=== PATIENT | female | born 1990 | race American Indian/Alaskan Native ===

== ENCOUNTER 2020-12-28 18:54 | Emergency (ER) | payer SELFPAY ==
[2020-12-28 19:25] VITALS: BP 134/77
[2020-12-28] MEDS ORDERED: SODIUM CHLORIDE 0.9% 1000 ML 1,000 ML IV ONE (19:49)
--- NOTE | 2020-12-28 19:53 | Emergency Department Report ---
ED General Adult HPI - General Chief complaint: Urogenital-Female Stated complaint: BLOOD IN URINE/NO APPETITE Time Seen by Provider: 12/28/20 19:29 Source: patient Mode of arrival: Ambulatory Limitations: No Limitations - History of Present Illness Initial comments: 30-year-old female patient with history of prediabetes presents to the emergency department with complaints of painless hematuria, generalized weakness, increased thirst, and right lower back pain. Painless hematuria began today with 2 episodes of blood in her urine. Remainder of symptoms began approximately 1 week ago. Patient states she has been drinking a lot of soda lately and "it seems like she is always thirsty." Patient is not currently on any medication for glucose control. States her glucose was checked last month and confirmed to be within prediabetic range. No history of genitourinary problems. Denies fever, chills, nausea, vomiting, abdominal pain, dysuria, vag inal discharge. Denies all other complaints at this time. - Related Data Allergies Allergy/AdvReac Type Severity Reaction Status Date / Time No Known Allergies Allergy Verified 12/28/20 19:17 ED Review of Systems ROS: Stated complaint: BLOOD IN URINE/NO APPETITE Other details as noted in HPI Other: GENERAL: Positive for generalized weakness and increased thirst. ENT: Negative for ear pain, difficulty hearing, sore throat, nasal congestion, epistaxis. CARDIOVASCULAR: Negative for chest pain, palpitations, lower extremity swelling. PULMONARY: Negative for cough, dyspnea, wheezing, orthopnea, cyanosis. GASTROINTESTINAL: Negative for abdominal pain, nausea, vomiting, diarrhea, constipation. GENITOURINARY: Positive for hematuria. MUSCULOSKELETAL: Negative for joint pain, joint swelling, myalgias, back pain, neck pain. NEUROLOGICAL: Negative for headache, seizure, syncope, paresthesias, weakness. INTEGUMENTARY: Negative for erythema, rash, diaphoresis, laceration, ecchymosis. HEMATOLOGICAL: Negative for hemoptysis, hematemesis, hematochezia, hematuria. PSYCHIATRIC: Negative for hallucinations, suicidal ideation, homicidal ideation, anxiety, depression. ED Past Medical Hx - Past Medical History Previous Medical History?: Yes Additional medical history: HPV, - Surgical History Past Surgical History?: No - Social History Smoking Status: Never Smoker Substance Use Type: None ED Physical Exam - General Limitations: No Limitations - Other Other exam information: General: Awake and alert. No acute distress. Head: Atraumatic, normocephalic. Eyes: EOMI. Pupils are equal and round. Normal sclera and conjunctiva. ENT: Oral mucosa is dry. Normal pharyngeal exam. Neck: Supple. No lymphadenopathy. Pulmonary: No respiratory distress. Clear to auscultation bilaterally. Cardiac: Tachycardic. Pulses are palpable and equal bilaterally. No lower extremity cyanosis or edema. Skin: Warm and dry. No rashes. Abdomen: Soft, non-tender, non-protuberant. No guarding, rigidity, or rebound. Bowel sounds are normal. No organomegaly or masses noted. Back: Normal alignment. Right CVA tenderness. Extremities: Symmetrical. Full range of motion intact. Neurological: Alert and oriented, appropriately interactive, no focal deficits. Psych: Cooperative. Appropriate mood and affect. Speech is evenly metered. Thoughts are logically construed. ED Course Vital Signs 12/28/20 12/28/20 19:15 19:25 Temperature 99.2 F Pulse Rate 114 H Blood Pressure 134/77 O2 Sat by Pulse 97 Oximetry ED Medical Decision Making - Lab Data Result diagrams: 12/28/20 19:57 12/28/20 19:57 - Radiology Data [facility] [address] [place] [address] Cat Scan Report Signed Patient: PATO BEDOYA MR#: [id number] : 1990 Acct:[id number] Age/Sex: 30 / F ADM Date: 12/28/20 Loc: ED Attending Dr: Ordering Physician: ISAIAS GARZA Date of Service: 12/28/20 Procedure(s): CT abdomen pelvis wo con Accession Number(s): [id number] cc: ISAIAS GARZA CT abdomen pelvis wo con INDICATION / CLINICAL INFORMATION: right CVA tenderness + hematuria. TECHNIQUE: Axial CT imaging of abdomen and pelvis was obtained without contrast. Coronal and sagittal reformatted imaging obtained and reviewed. All CT scans at this location are p erformed using CT dose reduction for ALARA by means of automated exposure control. COMPARISON: None available. FINDINGS: CT abdomen without contrast demonstrates a nonspecific mass within the tip of the liver. The mass is round and measures approximately 2 cm. The remainder of the liver is unremarkable for noncontrast exam. Spleen, pancreas, and kidneys are unremarkable. Gallbladder is present. No intrarenal calculi or hydronephrosis is present in either kidney. CT pelvis without contrast demonstrates normal appearance the appendix in the right lower quadrant. The uterus and ovaries appear grossly unremarkable. GI tract is within normal limits. Visualized lung bases demonstrate multifocal bilateral groundglass opacities highly suggestive for Covid pneumonia. This will need to be correlated with Covid status. No acute osseous abnormality noted. IMPRESSION: 1. Multifocal groundglass opacities are seen in both visualized lung bases, most likely related to Covid pneumonia. Please correlate with Covid status. 2. Nonspecific incidental finding of 2 cm mass in the inferior tip of the liver. On a noncontrast exam, this mass is nonspecific. Further evaluation, in the future, with either hepatic ultrasound or contrasted CT can be performed for further evaluation. 3. Both kidneys appear unremarkable. A normal appearance of a kidney on a noncontrast CT does not exclude the possibility of pyelonephritis, if that is a possibility clinically. Signer Name: Delphine Gomez MD Signed: 12/28/2020 9:36 PM Workstation Name: [id number] Transcribed By: Dictated By: Delphine Gomez MD Electronically Authenticated By: Delphine Gomez MD Signed Date/Time: 12/28/202135 DD/ 30 TD/TT: - Medical Decision Making Differential diagnosis including but not limited to: pyelonephritis, nephrolithiasis, urinary tract infection, , new onset diabetes, DKA/HHS, dehydration, electrolyte abnormality, hypoglycemia, bladder cancer On reevaluation, patient is stable and symptoms have improved. Labs and urinalysis suggestive of mild dehydration. Serum glucose and pH within normal limits. test is negative. No clinical evidence to suggest urinary tract infection. CT of the abdomen/pelvis shows unremarkable kidneys and bladder. Incidentally, patient was found to have pulmonary findings at both lung bases suggestive of COVID-19 pneumonia as well as a nonspecific hepatic mass. Patient denies COVID-19 symptoms. Advised to adhere to CDC guidelines r egarding isolation precautions until confirmatory testing is completed on an outpatient basis. Patient has been provided with a copy of her imaging results to take with her to her primary care provider for further evaluation as clinically indicated. Patient expressed understanding and is agreeable to plan of care. Strict return precautions provided. Repeat exam is unremarkable and benign. History, exam, diagnostic testing, and current condition do not suggest worrisome pathology to warrant further testing, continued ED treatment, admission, or surgical evaluation at this point. Given the low probability of a significant medical illness, it would be more likely to result in harm than benefit to perform further testing at this stage. Discussed findings, presumptive diagnosis, need for follow-up and specific signs/symptoms that should prompt immediate return to the emergency department. Instructions were explained in detail to the patient in addition to giving written discharge information. Patient expressed understanding and was given the opportunity to ask questions, all of which were satisfactorily answered prior to discharge home. Of note, patient was tachycardic on arrival, presumably secondary to dehydration. Nursing staff was instructed multiple times via written and verbal communication (see orders) to recheck the patient's heart rate prior to discharge home. Discharge paperwork was not to be printed until repeat heart was obtained and documented. However, it appears the patient was still discharged home after IV fluids, and repeat vitals were not properly documented. She was ambulatory without assistance and reporting symptomatic relief at the time of discharge. Critical care attestation.: If time is entered above; I have spent that time in minutes in the direct care of this critically ill patient, excluding procedure time. ED Disposition Clinical Impression: Abnormal finding on CT scan Hematuria Qualifiers: Hematuria type: unspecified type Qualified Code(s): R31.9 - Hematuria, unspecified Disposition: 01 HOME / SELF CARE / HOMELESS Is pt being admited?: No Does the pt Need Aspirin: No Condition: Stable Instructions: Incidental Abnormal Radiological Finding, Hematuria, Adult Additional Instructions: Rest. Drink plenty of fluids. Please adhere to CDC guidelines regarding self-isolation precautions until confirmatory COVID-19 testing can be obtained. Follow-up with your primary care provider this week. Call Thursday to schedule an appointment. Bring a copy of today's CT results with you to your follow-up appointment. Return to the emergency department immediately for new or worsening symptoms. Specifically, return to the emergency department immediately for fever, abdominal pain, pelvic pain, increased bleeding, inability to use the bathroom, shortness of breath, chest pain, or any other concerns. Referrals: KATIE VALLADARES MD [Staff Physician] - 3-5 Days [facility] [Provider Group] - 3-5 Days Forms: Work/School Release Form(ED) Time of Disposition: 00:46
[2020-12-28 20:27] LABS: Basophils # (Auto) 0.1 K/mm3 (0.0-0.1); Eosinophils % (Auto) 0.3 % (0.0-4.3); Hematocrit 37.9 % (30.3-42.9); Hemoglobin 12.7 gm/dl (10.1-14.3); Lymphocytes # (Auto) 2.1 K/mm3 (1.2-5.4); Lymphocytes % (Auto) 31.8 % (13.4-35.0); Mean Corpuscular HGB Conc 33 % (30-34); Mean Corpuscular Volume 81 fl (79-97); Monocytes # (Auto) 0.8 K/mm3 (0.0-0.8); Monocytes % (Auto) 12.3 % (0.0-7.3); Platelet Count 231 K/mm3 (140-440); Red Cell Distribution Width 14.5 % (13.2-15.2)
[2020-12-28 20:43] LABS: Alanine Aminotransferase 32 units/L (7-56); Albumin 3.8 g/dL (3.9-5); BUN/Creatinine Ratio 11; Blood Urea Nitrogen 10 mg/dL (7-17); Calcium 9.3 mg/dL (8.4-10.2); Hemolysis Index 19
--- NOTE | 2020-12-28 21:40 | Cat Scan Report ---
CT abdomen pelvis wo con INDICATION / CLINICAL INFORMATION: right CVA tenderness + hematuria. TECHNIQUE: Axial CT imaging of abdomen and pelvis was obtained without contrast. Coronal and sagittal reformatte d imaging obtained and reviewed. All CT scans at this location are performed using CT dose reduction for ALARA by means of automated exposure control. COMPARISON: None available. FINDINGS: CT abdomen without contrast demonstrates a nonspecific mass within the tip of the liver. The mass is round and measures approximately 2 cm. The remainder of the liver is unremarkable for noncontrast exa m. Spleen, pancreas, and kidneys are unremarkable. Gallbladder is present. No intrarenal calculi or h ydronephrosis is present in either kidney. CT pelvis without contrast demonstrates normal appearance the appendix in the right lower quadrant. T he uterus and ovaries appear grossly unremarkable. GI tract is within normal limits. Visualized lung bases demonstrate multifocal bilateral groundglass opacities highly suggestive for Co vid pneumonia. This will need to be correlated with Covid status. No acute osseous abnormality noted. IMPRESSION: 1. Multifocal groundglass opacities are seen in both visualized lung bases, most likely related to Co vid pneumonia. Please correlate with Covid status. 2. Nonspecific incidental finding of 2 cm mass in the inferior tip of the liver. On a noncontrast exa m, this mass is nonspecific. Further evaluation, in the future, with either hepatic ultrasound or con trasted CT can be performed for further evaluation. 3. Both kidneys appear unremarkable. A normal appearance of a kidney on a noncontrast CT does not exc lude the possibility of pyelonephritis, if that is a possibility clinically. Signer Name: Delphine Gomez MD Signed: 12/28/2020 9:36 PM Workstation Name: [id number]
[2020-12-28 23:49] LABS: Bilirubin,Urine NEG (Negative); Blood,Urine NEG (Negative); Color,Urine Yellow (Yellow); Mucus,Urine 3+ /HPF; Urobilinogen,Urine < 2.0 mg/dL (<2.0)
== END 2020-12-29 02:09 | disposition home or self-care (01) ==
LOC: ED 18:54
DX: R31.9 Hematuria, unspecified (principal); R63.1 Polydipsia; M54.50 Low back pain, unspecified
CPT/HCPCS: 36415; 74176; 80053; 81001; 82805; 83735; 84100; 84703; 85025; 96360; 99284; J7030